=== PATIENT | female | born 1980 | race Caucasian/White ===

== ENCOUNTER → 2017-01-13 | Outpatient (CLI) | payer SELFPAY ==
[~2017-01-13] MED LIST: AMOXICILLIN 8751 TAB PO; BACTRIM DS 8001 TAB PO; CEPHALEXIN500 M1 PO; HUMULIN N100 U/ML SC; LANTUS100 U/ML; LEVEMIR100 U/ML SQ; MOTRIN 600600 MG/TAB PO; NORCO 325 MG-51 TAB PO; NOVOLOG 100U100 U/M1 SC; NOVOLOG FLEX100 U/ML SC; PERCOCET 325 MG1 TA2 PO; PHENERGAN 25 TA25 MG PO; PRENATAL1 TA1 PO; SENOKOT S 50 MG1 TAB PO; ULTRAM 50MG TAB50 MG PO
== END ==
LOC: SUN.DIA 13:56
DX: E11.65 Type 2 diabetes mellitus with hyperglycemia (principal); Z79.4 Long term (current) use of insulin; E66.9 Obesity, unspecified; Z68.24 Body mass index [BMI] 24.0-24.9, adult; Z71.3 Dietary counseling and surveillance

== ENCOUNTER → 2017-06-02 | Outpatient (CLI) | payer OTHER | LOC: SUN.DIA 10:08 | DX: E11.9 Type 2 diabetes mellitus without complications (principal); Z79.4 Long term (current) use of insulin; E66.9 Obesity, unspecified; Z68.22 Body mass index [BMI] 22.0-22.9, adult; Z71.3 Dietary counseling and surveillance | CPT/HCPCS: G0108 ==

== ENCOUNTER → 2017-10-22 | Outpatient (CLI) | payer SELFPAY | LOC: SUN.DIA 10-06 09:58 | DX: E11.9 Type 2 diabetes mellitus without complications (principal); Z79.4 Long term (current) use of insulin; E66.9 Obesity, unspecified; Z68.20 Body mass index [BMI] 20.0-20.9, adult; Z71.3 Dietary counseling and surveillance | CPT/HCPCS: G0108 ==

== ENCOUNTER → 2017-11-11 | Outpatient (CLI) | payer SELFPAY | LOC: SUN.DIA 13:10 | DX: E11.9 Type 2 diabetes mellitus without complications (principal); Z79.4 Long term (current) use of insulin; Z68.20 Body mass index [BMI] 20.0-20.9, adult; Z71.3 Dietary counseling and surveillance | CPT/HCPCS: G0108 ==

== ENCOUNTER 2018-11-30 08:37 | Emergency (ER) | payer SELFPAY ==
[~2018-11-30] VITALS: Ht 160 cm; Wt 46.4 kg
[2018-11-30 08:42] VITALS: TEMP 98.7
[2018-11-30] MEDS ORDERED: CLEOCIN HC150 MG/CAP PO (09:14)
[2018-11-30] MEDS ORDERED: NORCO 325 MG-51 TAB PO (09:15)
[2018-11-30 09:40] VITALS: BP 168/98; PULSE 79
== END 2018-11-30 09:41 | disposition home or self-care (01) ==
LOC: COL.ER 08:37
DX: K04.7 Periapical abscess without sinus (principal); E11.9 Type 2 diabetes mellitus without complications; Z79.4 Long term (current) use of insulin; Z90.49 Acquired absence of other specified parts of digestive tract